=== PATIENT | male | born 2000 | race Caucasian/White ===

== ENCOUNTER 2022-01-26 12:25 | Emergency (ER) | payer BC, OTHER ==
[2022-01-26] MEDS ORDERED: Ketorolac 30 MG/ML SDV IM STA (12:35)
[2022-01-26] MEDS ORDERED: Diphtheria,Pertussis(Acell),Tetanus Vaccine 0.5 ML Syringe IM ONE (12:35)
[2022-01-26 13:08] LABS: CARBON DIOXIDE,CO2 30.4 mmol/L (21.0-32.0); POTASSIUM,K 3.6 mmol/L (3.5-5.1)
[2022-01-26] MEDS ORDERED: Ketorolac 30 MG/ML SDV IVPUSH ONE (13:15)
== END 2022-01-26 14:31 | disposition home or self-care (01) ==
LOC: MW.ED 12:25
DX: S42.021A Displaced fracture of shaft of right clavicle, initial encounter for closed fracture (principal); Z23 Encounter for immunization; V86.56XA Driver of dirt bike or motor/cross bike injured in nontraffic accident, initial encounter; Y92.89 Other specified places as the place of occurrence of the external cause
CPT/HCPCS: 36415; 71045; 73000; 80053; 82550; 85025; 85610; 90471; 90715; 93005; 96374; 99284; J1885; 93010; 99285